=== PATIENT | male | born 1965 | race Caucasian/White ===

== ENCOUNTER 2017-05-16 20:41 | Emergency (ER) | payer BC, OTHER ==
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
[2017-05-16 21:32] VITALS: BP 115/83; PULSE 92; TEMP 97.8; BMI 27.3
[2017-05-16] MEDS ORDERED: CYCLOBENZAPRINE HCL 10 MG TABLET (FP) PO ONE (22:19)
[2017-05-16] MEDS ORDERED: KETOROLAC TROMETHAMINE 60 MG/2 ML VIAL IM ONE (22:19)
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
[2017-05-16] MEDS ORDERED: KETOROLAC TROMETHAMINE 60 MG/2 ML VIAL ONE (22:23)
[2017-05-16] MEDS ORDERED: CYCLOBENZAPRINE HCL 10 MG TABLET (FP) ONE (22:23)
== END 2017-05-16 22:53 | disposition home or self-care (01) ==
LOC: JERFT 20:41
PROC: 3E0233Z Introduction of Anti-inflammatory into Muscle, Percutaneous Approach (ICD-10-PCS; principal; 2017-05-16)
DX: S16.1XXA Strain of muscle, fascia and tendon at neck level, initial encounter (principal); S39.012A Strain of muscle, fascia and tendon of lower back, initial encounter; V49.49XA Driver injured in collision with other motor vehicles in traffic accident, initial encounter; Y92.488 Other paved roadways as the place of occurrence of the external cause; Y93.89 Activity, other specified; Y99.8 Other external cause status
CPT/HCPCS: 99281-25

== ENCOUNTER 2020-12-28 06:48 | Emergency (ER) | payer BC, OTHER ==
[2020-12-28 06:55] VITALS: BP 149/108; PULSE 90; BMI 29.2
[2020-12-28] MEDS ORDERED: predniSONE 20 MG TABLET (UD) PO ONE (07:17)
[2020-12-28] MEDS ORDERED: DOXYCYCLINE HYCLATE 100 MG CAPSULE PO ONE ×2 (07:20→07:38)
[2020-12-28] MEDS ORDERED: predniSONE 20 MG TABLET (UD) ONE (07:38)
== END 2020-12-28 08:00 | disposition home or self-care (01) ==
LOC: JER 06:48
DX: G51.0 Bell's palsy (principal)
CPT/HCPCS: 99283-25

== ENCOUNTER 2024-04-10 13:26 | Emergency (ER) | payer BC, OTHER ==
[2024-04-10 13:32] VITALS: BP 125/85; PULSE 96; RESP 18; TEMP 97.7; BMI 30.7
[2024-04-10] MEDS: IBUPROFEN 600 MG TABLET (FP) PO ONE (14:46)
[2024-04-10] MEDS ORDERED: IBUPROFEN 600 MG TABLET (FP) PO ONE (14:47)
== END 2024-04-10 14:55 | disposition home or self-care (01) ==
LOC: JER 13:26 → JERFT 13:26
DX: S63.92XA Sprain of unspecified part of left wrist and hand, initial encounter (principal); S80.02XA Contusion of left knee, initial encounter; W01.0XXA Fall on same level from slipping, tripping and stumbling without subsequent striking against object, initial encounter
CPT/HCPCS: 73130-TC-LT-FY; 99283-25